=== PATIENT | male | born 1965 | race Caucasian/White ===

== ENCOUNTER 2019-10-25 12:21 | Outpatient (CLI) | payer OTHER, SELFPAY ==
--- NOTE | ~2019-10-25 | XR_ITS ---
EXAMINATION: HAND-SANA ARTHRITIS 3+VIEWS DATE: 10/25/2019 12:49 INDICATION: Unspecified osteoarthritis and pain at the bilateral hands. TECHNIQUE: Posteroanterior, lateral, and oblique views of the left and of the right hands as well as a ballcatchers view of both hands were obtained. COMPARISON: 04/16/19 FINDINGS: Normal alignment at the bilateral hands. No fracture. Relatively symmetric pattern of mild polyarticu lar osteoarthritis moderate severity at the left first carpometacarpal and third metacarpophalangeal joints and mild at the bilateral triscaphe joints, multiple interphalangeal joints with distal interp halangeal predominance and at the right first carpal metacarpal and third metacarpophalangeal joints. No erosions to suggest an inflammatory arthritis. Soft tissues are unremarkable. IMPRESSION: 1. Polyarticular osteoarthritis, moderate severity at the left first carpometacarpal and third metaca rpophalangeal joints and otherwise mild with relatively symmetric typical distribution in both hands. Reviewed, dictated and finalized at location A. IMPRESSION: 1. Polyarticular osteoarthritis, moderate severity at the left first carpometac arpal and third metacarpophalangeal joints and otherwise mild with relatively s ymmetric typical distribution in both hands.
--- NOTE | ~2019-10-25 | XR_ITS ---
XR sacroiliac joints min 3V DATE: 10/25/2019 12:49 INDICATION: Back pain TECHNIQUE: AP, bilateral oblique views COMPARISON: None FINDINGS: The sacroiliac joints are intact, without evidence of fracture, dislocation, erosive change or ankylosis. IMPRESSION: Negative Reviewed, dictated and finalized at Location A. Reviewed, dictated and finalized at location A. IMPRESSION: Negative
[2019-10-25 14:15] LABS: CRP 1.1 mg/dL (<1.0); Uric Acid 5.2 mg/dL (3.5-8.5)
[2019-10-25 14:28] LABS: Erythrocyte Sedimentation Rate 3 mm/hr (0-20)
[2019-10-27 09:39] LABS: Anti Cyclic Citrullinated Pept <16 Units (<20)
== END 2019-10-25 12:22 | disposition home or self-care (01) ==
LOC: ANHIMG 12:26
PROVIDERS: PCP Family Medicine; Visit Provider Internal Medicine
DX: L40.50 Arthropathic psoriasis, unspecified (principal); M19.042 Primary osteoarthritis, left hand
CPT/HCPCS: 36415; 72202; 73130; 84550; 85652; 86140; 86200

== ENCOUNTER 2020-01-02 11:23 | Outpatient (CLI) | payer OTHER, SELFPAY ==
[2020-01-02 11:51] LABS: Hematocrit 40.2 % (42.0-52.0); Mean Corpuscular HGB Conc 34.8 g/dl (32-36); Mean Corpuscular Hemoglobin 30.5 pg (26-34); Mean Corpuscular Volume 87.6 fl (80-100); Mean Platelet Volume 10.9 fl (7.4-10.4); Platelet Count Result 184 k/mm3 (150-375); Red Blood Count 4.59 M/mm3 (4.6-6.20); Red Cell Distribution Width 11.9 % (11.5-14.5); White Blood Count 4.7 K/mm3 (4.5-10.0)
[2020-01-02 12:05] LABS: Anion Gap 8 mmol/L (8-16); Blood Urea Nitrogen 21 mg/dL (9-20); Carbon Dioxide 28 mmol/L (22-30); Chloride 101 mmol/L (98-107); Estimated Glomerular Filt Rate > 60; Glucose 92 mg/dL (75-110); Potassium 4.3 mmol/L (3.4-5.0); Sodium 137 mmol/L (137-145)
[2020-01-02 12:34] LABS: Prostate Specific Antigen 0.8 ng/mL (< OR = 4.0)
== END 2020-01-02 11:24 | disposition home or self-care (01) ==
LOC: ANHLAB 11:24
PROVIDERS: PCP Family Medicine; Visit Provider Nurse Practitioner Family
DX: R39.9 Unspecified symptoms and signs involving the genitourinary system (principal); R97.20 Elevated prostate specific antigen [PSA]
CPT/HCPCS: 36415; 80048; 84153; 85027

== ENCOUNTER 2020-01-30 08:57 | Outpatient (CLI) | payer OTHER, SELFPAY ==
--- NOTE | ~2020-01-30 | MR_ITS ---
EXAMINATION: MR sacroiliac jts wo con DATE: 01/30/2020 09:49 INDICATION: Arthropathic psoriasis presenting with left hip pain. TECHNIQUE: Magnetic resonance imaging (MRI) of the exiting right joints was performed without intrave nous contrast. Sequences included sagittal PD-weighted FSE; oblique axial T1-weighted FSE and T2-lin ghted FS FSE; oblique coronal T2-weighted FSE, T1-weighted FSE and T2-weighted FS FSE. COMPARISON: Radiographs dated 10/25/2019 FINDINGS: There is increased T2 signal surrounding a linear low signal intensity fracture line extending along the lateral aspect of the anterior cortex of the left sacral ala along the sacroiliac joint. Mild cys tic change with peripheral low signal intensity sclerotic margins near the fracture line along the an terior bill moore's slough side of the left sacroiliac joint. Minimal scattered subarticular edema at both the lef t and right sacroiliac joints. No increased signal or widening of the joint spaces. No other lesions suspicious for erosions to suggest an inflammatory arthritis. Mild osteoarthritis at the bilateral hi ps with marginal osteophytes and subarticular cystic change and edema along the posterior superior as pects of the left and right acetabula. Mild lower lumbar spondylosis. Soft tissues are unremarkable. IMPRESSION: 1. Small nondisplaced likely insufficiency fracture line at the left sacral ala along the anterior ma rgin of the sacroiliac joint. 2. Mild polyarticular osteoarthritis at the bilateral hip and sacroiliac joints. Reviewed, dictated and finalized at location A. IMPRESSION: 1. Small nondisplaced likely insufficiency fracture line at the left sacral ala along the anterior margin of the sacroiliac joint. 2. Mild polyarticular osteoarthritis at the bilateral hip and sacroiliac joints .
== END 2020-01-30 08:58 | disposition home or self-care (01) ==
LOC: ANHIMG 08:58
PROVIDERS: PCP Family Medicine; Visit Provider Internal Medicine
DX: L40.50 Arthropathic psoriasis, unspecified (principal); M53.3 Sacrococcygeal disorders, not elsewhere classified
CPT/HCPCS: 72197

== ENCOUNTER 2020-03-17 09:54 | Outpatient (CLI) | payer OTHER, SELFPAY ==
--- NOTE | ~2020-03-17 | DEXA_ITS ---
Bone Density Report Name: Jered Schneider Age: 54 Sex: Male Ethnicity: White Date of : 1965 Indication: prior fracture; Referring Provider: DESHAWN VILLAGOMEZ Study: Bone densitometry was performed. Exam Date: March 17, 2020 Accession number: [id number] Bone Density: Region BMD T-score Z-score Classification AP Spine (L1-L4) 1.063 -0.3 0.2 Normal Femoral Neck (Left) 0.880 -0.4 0.4 Normal Total Hip (Left) 1.020 -0.1 0.3 Normal Total Hip Bilateral Avg 1.045 0.1 0.5 Normal Femoral Neck (Right) 0.896 -0.2 0.5 Normal Total Hip (Right) 1.068 0.2 0.6 Normal World Health Organization criteria for BMD impression classify patients as: Normal (T-score at or above -1.0), Osteopenia (T-score between -1.0 and -2.5), or Osteoporosis (T-score at or below -2.5). 10-year Fracture Risk: FRAX not reported because: All T-scores for Spine Total, Hip Total, Femoral Neck at or above -1.0 Prior hip or vertebral fracture Clinical Information Provided by Patient: Have had a previous hip or vertebral fracture Has had a low trauma fracture Has used the following medications: Vitamin D Patient maximum height was 70 Does not regularly consume dairy products Drinks caffeinated beverages Impression: The patient has normal bone mass. The patient has risk factors, including: previous fracture. Discussion: INCREASED RISK OF FRACTURE DUE TO HISTORY OF LOW TRAUMA FRACTURE. The patient's previous fracture puts the patient at high risk of a future fracture. In untreated patients, the risk of osteoporotic fracture increases approximately two-fold for each 1.0 SD decrease in T-score. Low bone density is not the only risk factor for fracture; also consider factors such as patient's age, frailty or poor health, risk of falling, risk of injury, previous osteoporotic fracture, family history of osteoporosis, cigarette smoking, low body weight, etc. Not everyone with a low trauma fracture has osteoporosis; osteomalacia and other metabolic bone disorders should also be considered. Patients who have osteoporosis should be evaluated for specific diseases and conditions (secondary causes) that may cause or contribute to bone loss and fracture risk. National Osteoporosis Foundation (NOF) recommends pharmacologic intervention for patients with a prior low trauma hip or vertebral fracture regardless of BMD T-score. The patient should follow a healthful lifestyle (good nutrition with adequate calcium and vitamin D, and appropriate weight-bearing exercise). Follow-Up: Consider a repeat BMD and Vertebral Fracture Assessment (VFA) exam in 2 years or sooner if medically necessary, to reassess this patient's status. Reported by: DO on 03/17/2020 10:15:00 AM. Reviewed, dictated and finalized at location A.
== END 2020-03-17 09:55 | disposition home or self-care (01) ==
PROVIDERS: PCP Family Medicine; Visit Provider Orthopaedic Surgery
DX: M81.0 Age-related osteoporosis without current pathological fracture (principal); M84.48XA Pathological fracture, other site, initial encounter for fracture
CPT/HCPCS: 77080

== ENCOUNTER 2020-10-15 09:08 | Outpatient (CLI) | payer OTHER, SELFPAY ==
--- NOTE | ~2020-10-15 | XR_ITS ---
XR ribs BI 3V w CXR 2V DATE: 10/15/2020 09:30 INDICATION: Left lower anterior to posterior rib pain after weight lifting TECHNIQUE: PA and lateral chest. Multiple views of left and right ribs COMPARISON: None FINDINGS: Normal heart size. No hilar or mediastinal enlargement. Minimal aortic tortuosity. No pulmonary infiltrate or consolidation, pleural effusion or pulmonary vascular congestion or pneumo thorax. There is no evidence of rib fracture or bone destruction. IMPRESSION: Negative bilateral ribs No active cardiopulmonary disease Reviewed, dictated and finalized at location A.
== END 2020-10-15 09:09 | disposition home or self-care (01) ==
PROVIDERS: PCP Family Medicine; Visit Provider Nurse Practitioner Family
DX: R07.9 Chest pain, unspecified (principal)
CPT/HCPCS: 71046; 71110

== ENCOUNTER 2020-11-08 08:29 | Outpatient (CLI) | payer OTHER, SELFPAY ==
--- NOTE | ~2020-11-08 | MR_ITS ---
EXAMINATION: MR elbow LT wo con DATE: 11/08/2020 09:13 INDICATION: Left elbow pain. Strain of muscle. TECHNIQUE: Magnetic resonance imaging (MRI) of the left elbow was performed without intravenous contr ast. Sequences included coronal, axial, and sagittal PD-weighted FS FSE and coronal, axial, and sagit terrell PD-weighted FSE. COMPARISON: None FINDINGS: Osseous/other: Bone alignment is normal. No fracture. Bone marrow signal intensity is normal. There is some degree o f cartilage loss of radial head at its ulnar aspect with mild subchondral edema-like marrow signal in tensity. Tendons: There is mild tendinopathy of the common flexor and common extensor tendons at the medial and lateral humeral epicondyles, respectively. There is severe tendinopathy of biceps tendon near its radial att achment. Brachialis tendon is normal. Triceps tendon demonstrates tendinopathy and tear of some of th e fibers at its lateral aspect. There is a skin marker overlying the triceps tendon. Ligaments: Radial collateral ligament, lateral ulnar collateral ligament, and ulnar collateral ligament are norm al. Cubital tunnel: The ulnar nerve demonstrates increased signal suspicious for neuropathy, but clinical signs and sympt oms are more relevant than the MRI appearance. Fluid: There is no elbow joint effusion. There is mild olecranon bursitis. IMPRESSION: 1. Partial tear of triceps tendon involving less than 1/4 of the tendon fibers. 2. Mild olecranon bursitis. 3. Severe biceps tendinopathy. 4. Radial head chondrosis. Reviewed, dictated and finalized at location A.
== END 2020-11-08 08:30 ==
PROVIDERS: PCP Family Medicine; Visit Provider Orthopaedic Surgery
DX: S46.312A Strain of muscle, fascia and tendon of triceps, left arm, initial encounter (principal); M71.522 Other bursitis, not elsewhere classified, left elbow; M75.22 Bicipital tendinitis, left shoulder; M94.222 Chondromalacia, left elbow
CPT/HCPCS: 73221

== ENCOUNTER 2021-10-16 09:24 | Outpatient (CLI) | payer OTHER, SELFPAY ==
--- NOTE | ~2021-10-16 | XR_ITS ---
XR shoulder LT min 2V DATE: 10/16/2021 09:50 INDICATION: Left shoulder pain TECHNIQUE: 5 views COMPARISON: None FINDINGS: No recent fracture or dislocation. No periosteal reaction or bone destruction. No abnormal soft tissue calcification. IMPRESSION: No significant abnormality Reviewed, dictated and finalized at location A. IMPRESSION: No significant abnormality
== END 2021-10-16 09:25 ==
LOC: MICIMG 09:25
PROVIDERS: PCP Family Medicine; Visit Provider Nurse Practitioner Family
DX: M25.512 Pain in left shoulder (principal)
CPT/HCPCS: 73030

== ENCOUNTER 2023-01-27 09:21 | Outpatient (CLI) | payer OTHER, SELFPAY ==
--- NOTE | ~2023-01-27 | US_ITS ---
EXAMINATION: US abdomen complete DATE: 01/27/2023 09:50 INDICATION: Left upper quadrant abdominal pain TECHNIQUE: Multiple grayscale and Doppler ultrasound images of the abdomen were obtained. COMPARISON: None FINDINGS: The visualized portions of the pancreatic body appears normal. The majority the pancreas is obscured by shadowing bowel gas. The visualized abdominal aorta is normal in caliber measuring 2.2 cm in the m id aorta and 2.3 cm in the distal aorta. The visualized proximal inferior vena cava is normal. Liver has normal echogenicity and contour, with a smooth surface. No liver lesion identified. No intrahepat ic biliary duct dilation suspected. Portal venous flow was seen in the hepatopetal, normal direction and has normal Doppler waveform. The gallbladder is normal in appearance. There is no cholelithiasis . The common bile duct measures 3 mm, which is normal. Sonographic Villatoro sign was reported as negati ve by the machine packaging technician. There is normal renal contour and echogenicity bilaterally. The right kidney m easures 9.6 x 4.5 x 5.3 cm and the left 10.4 x 6.7 x 5.4 cm. There are no focal renal lesions identi fied. There is no hydronephrosis. Normal spleen measuring 13.0 cm in maximal length. IMPRESSION: 1. Normal oblique abdominal ultrasound. Reviewed, dictated and finalized at location A.
== END 2023-01-27 09:22 ==
PROVIDERS: PCP Physician Assistant Medical; Visit Provider Physician Assistant Medical
DX: R10.12 Left upper quadrant pain (principal)
CPT/HCPCS: 76700